=== PATIENT | male | born 1955 | race Caucasian/White ===

== ENCOUNTER → 2021-08-27 14:13 | Outpatient (CLI) | payer MEDICARE, SELFPAY ==
--- NOTE | 2021-08-27 14:22 | XR_ITS ---
PROCEDURE: XR CHEST 2V CLINICAL HISTORY: RESPIRATORY TRACT CONGESTION W/COUGH COMPARISON: No exams were available for comparison FINDINGS: The cardiomediastinal silhouette and pulmonary vascularity are within normal limits. Surgical clips are present along the mediastinum and hilum on the right. No lobar consolidation or collapse. There are degenerative changes in the thoracic spine. Small area of increased density is present along the inferior aspect of the T9 vertebral body on the lateral view and could be due to an overlying osteophyte. Follow-up may confirm stability IMPRESSION: No acute findings. Please see above for detail Dictated by: Ganesh Jackson MD 08/27/2021 15:17 Ganesh Jackson MD in [place] 08/27/2021 15:17
== END ==
PROVIDERS: PCP Family Medicine; Visit Provider Family Medicine
DX: R05.8 Other specified cough (principal)
CPT/HCPCS: 71046

== ENCOUNTER → 2021-09-10 12:56 | Outpatient (CLI) | payer MEDICARE, SELFPAY ==
[2021-09-10 13:32] LABS: Blood Urea Nitrogen 9 mg/dl (9-20); Estimated Glomerular Filt Rate 96 ml/min (>60); GFR (African American) 117 ML/MIN (>60)
--- NOTE | 2021-09-10 13:47 | CT_ITS ---
FINAL REPORT TECHNIQUE: Axial images through the chest were performed by computed tomography before and after the administration of IV contrast. This study was performed with techniques to keep radiation doses as low as reasonably achievable, (ALARA). Individualized dose reduction techniques using automated exposure control or adjustment of mA and/or kV according to the patient's size were employed. CLINICAL HISTORY: CHRONIC BRONCHITIS FINDINGS: There is no axillary adenopathy. There is no hilar or mediastinal adenopathy. The heart size is normal. Note is made of lipomatous hypertrophy of the interatrial septum. There is no pericardial or pleural effusion. Limited images of the upper abdomen demonstrates bilateral adrenal gland enlargement favoring adenomas. No suspicious infiltrate or nodule identified. There is mild scarring. There is mild diffuse bronchial wall thickening consistent with bronchitis. IMPRESSION: Mild diffuse bronchial wall thickening consistent with bronchitis. Reviewed, Interpreted and Dictated by Merrick Lopez III, MD Transcribed by Diane Watkins Authenticated by Merrick Lopez III, MD on 09/10/2021 03:44:26 PM [facility]
== END ==
PROVIDERS: PCP Family Medicine; Visit Provider Family Medicine
DX: J42 Unspecified chronic bronchitis (principal); F17.219 Nicotine dependence, cigarettes, with unspecified nicotine-induced disorders
CPT/HCPCS: 36415; 71270; 82565; 84520; Q9967